=== PATIENT | female | born 1965 | race Caucasian/White ===

== ENCOUNTER 2017-12-28 07:22 | Outpatient (CLI) | payer OTHER | END 2017-12-28 07:29 | disposition home or self-care (01) | LOC: SONOGRAMA 07:22 | DX: E04.1 Nontoxic single thyroid nodule (principal) ==

== ENCOUNTER 2023-12-03 09:09 | Outpatient (CLI) | payer OTHER | END 2023-12-03 09:12 | disposition home or self-care (01) | LOC: SONOGRAMA 09:09 | PROVIDERS: ATTEND Pathology Anatomic Pathology & Clinical Pathology | DX: D34 Benign neoplasm of thyroid gland (principal); E07.89 Other specified disorders of thyroid; D44.0 Neoplasm of uncertain behavior of thyroid gland ==